=== PATIENT | female | born 1995 | race Caucasian/White ===

== ENCOUNTER 2019-02-21 17:13 | Emergency (ER) | payer OTHER ==
[~2019-02-21] VITALS: Ht 157.5 cm; Wt 78.5 kg
[2019-02-21] MEDS ORDERED: SPIRONOLACTONE50 MG PO (17:28)
[2019-02-21] MEDS ORDERED: CLONAZEPAM 0.50.5 M1 PO (17:28)
[2019-02-21] MEDS ORDERED: SERTRALINE HCL100 MG PO (17:28)
[2019-02-21] MEDS ORDERED: OLANZAPINE ODT5 MG PO (17:28)
[2019-02-21] MEDS ORDERED: NORCO 5-325 TA1 EAC1 PO (19:23)
[2019-02-21] MEDS ORDERED: IBUPROFEN 800800 M1 PO (19:23)
[2019-02-21 19:33] VITALS: BP 133/88
== END 2019-02-21 19:34 | disposition home or self-care (01) ==
LOC: M.ERS 17:13
DX: M25.521 Pain in right elbow (principal); M25.421 Effusion, right elbow; F41.9 Anxiety disorder, unspecified; F32.9 Major depressive disorder, single episode, unspecified; Z98.890 Other specified postprocedural states; Z88.8 Allergy status to other drugs, medicaments and biological substances